=== PATIENT | male | born 1960 | race Caucasian/White ===

== ENCOUNTER 2017-05-20 09:26 | Day surgery (SDC) | payer BC ==
[2013-10-04 10:39] VITALS: BMI 27.8
--- NOTE | 2017-05-20 09:35 | CP.SDSHP ---
Same Day Surgery H & P - History Proposed Procedure: colonoscopy - Allergies Allergies: Allergies No Known Allergies Allergy (Verified 09/30/13 10:21) - Date & Time Date: 05/20/17 Time: 09:35 Short Stay Discharge - Short Stay Discharge Admitting Diagnosis/Reason for Visit: SCREENING Disposition: HOME/ ROUTINE
[2017-05-20] MEDS ORDERED: Propofol 10 mg/ml Inj (20 ML) ONE ×2 (10:49→11:00)
[2017-05-20 11:43] VITALS: TEMP 98.9; O2SAT 100
[2017-05-20 14:32] VITALS: BP 112/50; PULSE 68; RESP 19
== END 2017-05-20 12:30 | disposition home or self-care (01) ==
LOC: C.ENDO 09:26
PROVIDERS: ATTEND Colon & Rectal Surgery
DX: Z12.11 Encounter for screening for malignant neoplasm of colon (principal)
CPT/HCPCS: 45378; J2704